=== PATIENT | female | born 1945 | race Two or more races ===

== ENCOUNTER 2021-07-15 11:30 | Inpatient (IN) | payer OTHER ==
[~2021-07-15] VITALS: Ht 157.5 cm; Wt 76.2 kg
[2021-07-15] MEDS ORDERED: SYNTHROID75 MCG PO (14:22)
[2021-07-15] MEDS ORDERED: CLONAZEPAM2 M1 PO (14:22)
[2021-07-15] MEDS ORDERED: GABAPENTIN400 MG PO (14:22)
[2021-07-15] MEDS ORDERED: GLIMEPIRIDE2 MG (14:23)
[2021-07-15] MEDS ORDERED: ZEGERID 40 MG1 EACH PO (14:23)
[2021-07-15] MEDS ORDERED: ELETRIPTAN HBR40 MG PO (14:24)
[2021-07-18] MEDS ORDERED: NASAL MIST126 ML (15:20)
[2021-07-18] MEDS ORDERED: LIPITOR20 MG PO (15:20)
[2021-07-20] MEDS ORDERED: FAMOTIDINE40 MG (09:20)
[2021-07-20] MEDS ORDERED: ESTRADIOL10 MCG (09:20)
[2021-07-20] MEDS ORDERED: NABUMETONE500 MG (09:20)
[2021-07-20] MEDS ORDERED: FOLIC ACID1 MG (09:21)
[2021-07-20] MEDS ORDERED: REFRESH LIQUIGE15 ML (09:21)
[2021-07-20] MEDS ORDERED: OMEPRAZOLE40 MG (09:21)
[2021-07-22] MEDS ORDERED: PERCOCET 5-3251 EACH PO (11:07)
[2021-07-22] MEDS ORDERED: PRILOSEC OTC20 MG PO (11:07)
== END 2021-07-22 14:49 | disposition home or self-care (01) | DRG 334 ==
LOC: O/R 07-19 05:15 → SURG 07-19 05:15 → SURH 07-19 10:30 → SURG 07-19 11:17 → SURH 07-19 11:30 → SURG 07-22 14:49
PROVIDERS: ADMIT Surgery; ATTEND Surgery
PROC: 0DTP4ZZ Resection of Rectum, Percutaneous Endoscopic Approach (ICD-10-PCS; principal; 2021-07-19 10:30)
DX: K57.32 Diverticulitis of large intestine without perforation or abscess without bleeding (principal); E03.8 Other specified hypothyroidism; R10.32 Left lower quadrant pain; E11.9 Type 2 diabetes mellitus without complications; Z79.4 Long term (current) use of insulin

== ENCOUNTER 2021-07-18 12:49 | Outpatient (CLI) | payer OTHER ==
[~2021-07-18 12:49] MED LIST: CLONAZEPAM2 M1 PO; ELETRIPTAN HBR40 MG PO; GABAPENTIN400 MG PO; GLIMEPIRIDE2 MG; SYNTHROID75 MCG PO; ZEGERID 40 MG1 EACH PO
[2021-07-18] MEDS ORDERED: LIPITOR20 MG PO (15:20)
[2021-07-18] MEDS ORDERED: NASAL MIST126 ML (15:20)
== END 2021-07-18 13:00 | disposition home or self-care (01) ==
LOC: RAD 12:49
PROVIDERS: ATTEND Surgery
DX: I10 Essential (primary) hypertension (principal); K57.32 Diverticulitis of large intestine without perforation or abscess without bleeding; R10.32 Left lower quadrant pain